=== PATIENT | female | born 1970 | race Two or more races ===

== ENCOUNTER → 2017-07-11 | Outpatient (CLI) | payer OTHER ==
[~2017-07-11] MED LIST: KEPPRA1000 MG; LAMICTAL100 MG
== END | disposition home or self-care (01) ==
LOC: RAD 11:16
DX: R07.9 Chest pain, unspecified (principal)

== ENCOUNTER 2017-10-25 09:18 | Outpatient (CLI) | payer OTHER | END 2017-10-25 09:27 | disposition home or self-care (01) | LOC: TOM 09:18 | DX: H60.61 Unspecified chronic otitis externa, right ear (principal) ==

== ENCOUNTER → 2018-06-20 | Outpatient (CLI) | payer OTHER | END | disposition home or self-care (01) | LOC: SONOGRAMA 09:44 | DX: E78.49 Other hyperlipidemia (principal); Z12.31 Encounter for screening mammogram for malignant neoplasm of breast; R10.9 Unspecified abdominal pain ==

== ENCOUNTER 2018-06-26 09:28 | Outpatient (CLI) | payer OTHER | END 2018-06-26 09:30 | disposition home or self-care (01) | LOC: SONOGRAMA 09:28 | DX: R10.9 Unspecified abdominal pain (principal) ==

== ENCOUNTER 2018-07-31 10:23 | Outpatient (CLI) | payer OTHER | END 2018-07-31 10:33 | disposition home or self-care (01) | LOC: MAMO-SONO 10:23 | DX: E78.49 Other hyperlipidemia (principal); Z12.31 Encounter for screening mammogram for malignant neoplasm of breast ==

== ENCOUNTER 2020-04-29 08:42 | Outpatient (CLI) | payer OTHER | END 2020-04-29 08:51 | disposition home or self-care (01) | LOC: RAD 08:42 | PROVIDERS: ATTEND Specialist | DX: M54.5 Low back pain (principal); R20.0 Anesthesia of skin; Z13.220 Encounter for screening for lipoid disorders; Z13.1 Encounter for screening for diabetes mellitus ==

== ENCOUNTER 2020-05-06 08:16 | Outpatient (CLI) | payer OTHER | END 2020-05-06 08:34 | disposition home or self-care (01) | LOC: MAMO-SONO 08:16 | PROVIDERS: ATTEND Specialist | DX: N60.01 Solitary cyst of right breast (principal); Z12.31 Encounter for screening mammogram for malignant neoplasm of breast; N64.59 Other signs and symptoms in breast; M54.5 Low back pain; R20.0 Anesthesia of skin; Z13.220 Encounter for screening for lipoid disorders; Z13.1 Encounter for screening for diabetes mellitus ==

== ENCOUNTER 2020-09-02 07:39 | Outpatient (CLI) | payer OTHER | END 2020-09-02 07:56 | disposition home or self-care (01) | LOC: MRI 07:39 | DX: G40.219 Localization-related (focal) (partial) symptomatic epilepsy and epileptic syndromes with complex partial seizures, intractable, without status epilepticus (principal) | CPT/HCPCS: 70553 ==

== ENCOUNTER 2021-12-29 07:28 | Outpatient (CLI) | payer OTHER | END 2021-12-29 07:56 | disposition home or self-care (01) | LOC: MAMO-SONO 07:28 | PROVIDERS: ATTEND Specialist | DX: Z12.31 Encounter for screening mammogram for malignant neoplasm of breast (principal); Z13.29 Encounter for screening for other suspected endocrine disorder; M25.50 Pain in unspecified joint ==

== ENCOUNTER 2023-03-27 12:32 | Outpatient (CLI) | payer OTHER ==
[~2023-03-27 12:32] MED LIST changes: +EZETIMIBE-SIMV1 EAC1 PO
== END 2023-03-27 12:50 | disposition home or self-care (01) ==
LOC: RAD 12:32
DX: M54.50 Low back pain, unspecified (principal); M47.816 Spondylosis without myelopathy or radiculopathy, lumbar region; M54.2 Cervicalgia; M47.812 Spondylosis without myelopathy or radiculopathy, cervical region; M54.6 Pain in thoracic spine; M47.814 Spondylosis without myelopathy or radiculopathy, thoracic region

== ENCOUNTER 2023-04-11 07:36 | Outpatient (CLI) | payer OTHER | END 2023-04-11 07:46 | disposition home or self-care (01) | LOC: SONOGRAMA 07:36 | PROVIDERS: ATTEND Internal Medicine Gastroenterology | DX: R10.9 Unspecified abdominal pain (principal) ==

== ENCOUNTER 2023-06-06 07:20 | Outpatient (CLI) | payer OTHER | END 2023-06-06 07:25 | disposition home or self-care (01) | LOC: NUCLEAR 07:20 | PROVIDERS: ATTEND Internal Medicine Gastroenterology | DX: K80.20 Calculus of gallbladder without cholecystitis without obstruction (principal) ==

== ENCOUNTER 2023-06-27 07:13 | Outpatient (CLI) | payer OTHER | END 2023-06-27 07:23 | disposition home or self-care (01) | LOC: MAMO-SONO 07:13 | PROVIDERS: ATTEND Specialist | DX: N63.0 Unspecified lump in unspecified breast (principal); Z12.31 Encounter for screening mammogram for malignant neoplasm of breast ==

== ENCOUNTER 2024-04-14 19:38 | Emergency (ER) | payer OTHER ==
[~2024-04-14] VITALS: Ht 165.1 cm; Wt 68.9 kg
[2024-04-14] MEDS ORDERED: FAMOTIDINE/PF 20 MG/2 ML VIAL IV PUSH STA (21:41)
[2024-04-14] MEDS ORDERED: FAMOTIDINE/PF 20 MG/2 ML VIAL ONE (21:49)
== END 2024-04-14 22:17 | disposition home or self-care (01) ==
LOC: ER 19:40
DX: K29.70 Gastritis, unspecified, without bleeding (principal)

== ENCOUNTER 2024-09-27 08:17 | Outpatient (CLI) | payer OTHER | END 2024-09-27 08:19 | disposition home or self-care (01) | LOC: RAD 08:17 | DX: E78.5 Hyperlipidemia, unspecified (principal); G40.909 Epilepsy, unspecified, not intractable, without status epilepticus; M25.50 Pain in unspecified joint; Z12.11 Encounter for screening for malignant neoplasm of colon; M62.830 Muscle spasm of back ==

== ENCOUNTER 2024-11-14 09:54 | Outpatient (CLI) | payer OTHER | END 2024-11-14 09:56 | disposition home or self-care (01) | LOC: SONOGRAMA 09:54 | PROVIDERS: ATTEND Specialist | DX: R31.29 Other microscopic hematuria (principal) ==

== ENCOUNTER 2025-01-15 13:11 | Outpatient (CLI) | payer OTHER | END 2025-01-15 13:29 | disposition home or self-care (01) | LOC: MRI 13:11 | PROVIDERS: ATTEND Obstetrics & Gynecology Obstetrics | DX: G40.219 Localization-related (focal) (partial) symptomatic epilepsy and epileptic syndromes with complex partial seizures, intractable, without status epilepticus (principal); R10.0 Acute abdomen; R10.10 Upper abdominal pain, unspecified | CPT/HCPCS: 70553; 72197 ==